=== PATIENT | female | born 1995 | race Two or more races ===

== ENCOUNTER 2017-02-02 04:23 | Inpatient (IN) | payer SELFPAY ==
[~2017-02-02] VITALS: Ht 158.1 cm; Wt 79.4 kg
[2017-02-02] MEDS ORDERED: IV RINGERS,LACTATED 1000ML 1,000 ML IV SCH (05:07)
[2017-02-02] MEDS ORDERED: FENTANYL PF 100 MCG/2 ML VIAL. IV PRN (05:15)
[2017-02-02] MEDS ORDERED: ACETAMINOPHEN 325 MG TABLET. PO PRN ×2 (05:15→15:30)
[2017-02-02] MEDS ORDERED: OXYTOCIN 30 UNIT/500 ML PREMIX 500 ML IV PRN ×2 (05:15→15:30)
[2017-02-02] MEDS ORDERED: LIDOCAINE 1% PF 30 ML VIAL. INJ PRN (05:15)
[2017-02-02] MEDS ORDERED: 0.9 % SODIUM CHLORIDE 10 ML DISP.SYRIN. IV PRN ×2 (05:15→15:30)
[2017-02-02] MEDS ORDERED: IBUPROFEN 800 MG TABLET. PO PRN (05:15)
[2017-02-02] MEDS ORDERED: TERBUTALINE 1 MG/ML VIAL. SQ PRN (05:15)
[2017-02-02] MEDS ORDERED: MAG HYDROX/ALUMINUM HYD/SIMETH 30 ML ORAL.SUSP PO PRN ×2 (05:15→15:30)
[2017-02-02] MEDS ORDERED: ONDANSETRON PF 4 MG/2 ML VIAL. IV PRN (05:15)
[2017-02-02] MEDS ORDERED: DINOPROSTONE 10 MG SUPP.VAG VG ONE (06:00)
[2017-02-02 06:19] LABS: BASO % 0 % (0-3); EOS % 1 % (0-3); HEMATOCRIT 33.7 % (36.0-47.0); HEMOGLOBIN 11.4 g/dL (12.0-15.5); LYMPH # 1.4 x10^3/uL (1.0-4.8); LYMPH % 10 % (24-48); MEAN CORPUSCULAR HEMOGLOBIN 31 pg (25-35); MEAN CORPUSCULAR HGB CONC 34 g/dL (31-37); MEAN CORPUSCULAR VOLUME 92 fL (79-100); MONO % 6 % (0-9); NEUT % 84 % (31-73); PLATELET COUNT 229 x10^3/uL (140-400); RED BLOOD COUNT 3.66 x10^6/uL (3.50-5.40); RED CELL DISTRIBUTION WIDTH 13.5 % (11.5-14.5); WHITE BLOOD COUNT 14.8 x10^3/uL (4.0-11.0)
[2017-02-02 07:52] LABS: BILIRUBIN,URINE SMALL (NEG); GLUCOSE,URINE NEGATIVE (NEG); NITRITE,URINE NEGATIVE (NEG); PH,URINE 6.5; PROTEIN,URINE NEGATIVE (NEG-TRACE)
[2017-02-02 07:55] LABS: BACTERIA,URINE MANY /HPF (0-FEW); SQUAMOUS EPITHELIAL CELL,UR MANY /LPF; WBC,URINE >40 /HPF (0-4)
[2017-02-02] MEDS ORDERED: BUTORPHANOL 2 MG VIAL. IV PRN (08:00)
[2017-02-02] MEDS ORDERED: L&D EPIDURAL CASSETTE 100 ML EP ONE (09:18)
[2017-02-02] MEDS ORDERED: ROPIVacaine 0.2% IN 0.9%NACL PF 40 MG/20 ML DISP.SYRIN. ONE (09:18)
[2017-02-02] MEDS ORDERED: EPHEDRINE PF IN SALINE 50 MG/5 ML DISP.SYRIN. IV PRN (10:00)
[2017-02-02] MEDS ORDERED: ROPIVacaine 0.2% IN 0.9%NACL PF 40 MG/20 ML DISP.SYRIN. EPI PRN (10:00)
[2017-02-02] MEDS ORDERED: NALOXONE 0.4 MG/ML VIAL. IV PRN (10:00)
[2017-02-02] MEDS ORDERED: L&D EPIDURAL CASSETTE 100 ML EP PRN (10:00)
[2017-02-02] MEDS ORDERED: OXYTOCIN in NORMAL SALINE PREMIX 30 UNIT/500 ML BAG. IV ONE (13:00)
--- NOTE | 2017-02-02 15:26 | PDOC1 ---
OB - History Hx of Present Care: Good Care Ultrasounds: Normal mid trimester US Obstetrical Complications: None Medical Complications: None Past Family/Social History * Past Medical, Surgical, Family and Obstetric Histories reviewed from chart. Rubella: Immune RPR/VDRL: Negative GBS Status: Negative HBsAG: Negative OB - Chief Complaint & HPI Date of Admission: Date of Admission: Feb 02, 2017 at 04:23 Chief Complaint/History : 1 Para: 0 EGA: 40 Reason for admission: induction of labor Indication for induction: post dates Admission Nurse Assessment Rev: Yes Problems: OB - Admission Exam Physical Exam Vitals: VS - Last 72 Hours, by Label Date Time Temp Pulse Resp B/P Pulse Ox O2 Delivery O2 Flow Rate FiO2 02/02/17 07:59 20 HEENT: Normal Heart: Regular Rate Lungs: Clear Abdomen: Gravid, Non tender, Soft Extremities: Edema Reflexes: Normal Cervical Dilatation: 1cm Effacement: 50% Station: -3 Membranes: Intact Heart Rate: Normal Accelerations: Accelerations Present Decelerations: No decelerations Contractions on Admission: >10 Minutes Apart Intensity: Mild Text A: 40 wks IUP IOL post dates P: Admit for labor induction with cervidil. HUGH EWING Jr, MD Feb 02, 2017 15:25
--- NOTE | 2017-02-02 15:27 | PDOC ---
VAGINAL DELIVERY DATE DATE: 02/02/17 TIME: 15:26 : 1 Para: 1 EGA: 40 VAGINAL DELIVERY: VTX VACCUM ASSISTED: No PLACENTA: Spontaneous 8/9 SEX: Female WEIGHT Weight [3325 gm ] Nuchal Cord: No Amniotic Fluid: Clear PAIN: Epidural EPISIOTOMY: No EXTENSION: Yes (2nd degree midline laceration) REPAIRED WITH 2-0 vicryl EBL 300 ml COMPLICATIONS none CONDITION pt. stable Signs of Intrauterine Infectio: None Shoulder Dystocia: No Problems: HUGH EWING Jr, MD Feb 02, 2017 15:27
[2017-02-02] MEDS ORDERED: SIMETHICONE 80 MG TAB.CHEW PO PRN (15:30)
[2017-02-02] MEDS ORDERED: MAGNESIUM HYDROXIDE 2,400 MG/30 ML ORAL.SUSP. PO PRN (15:30)
[2017-02-02] MEDS ORDERED: PHENYLEPH/MINERAL OIL/PETROLAT RECTAL OINTMENT 28GM TUBE. RC PRN (15:30)
[2017-02-02] MEDS ORDERED: HYDROCORTISONE 1% TOPICAL OINTMENT 30GM TUBE. TP PRN (15:30)
[2017-02-02] MEDS ORDERED: BENZOCAINE 20% TOPICAL AEROSOL SPRAY 57GM CAN. TP PRN (15:30)
[2017-02-02] MEDS ORDERED: MMR per PROTOCOL. MC PRN (15:30)
[2017-02-02] MEDS ORDERED: ZOLPIDEM 5 MG TABLET. PO PRN (15:30)
[2017-02-02] MEDS ORDERED: DIPHENHYDRAMINE HCL 25 MG CAPSULE PO PRN (15:30)
[2017-02-02] MEDS: IV RINGERS,LACTATED 1000ML 1,000 ML IV SCH ×2 (17:12→17:46)
[2017-02-02 20:30] VITALS: BP 107/52
[2017-02-02] MEDS: OXYCODONE/APAP 5/325 TABLET. PO PRN (20:30)
[2017-02-02] MEDS ORDERED: PNV1TABL25 PO (21:44)
[2017-02-02 22:00] VITALS: BP 94/45
[2017-02-03 00:50] VITALS: BP 97/53
[2017-02-03] MEDS: IV RINGERS,LACTATED 1000ML 1,000 ML IV SCH (01:46)
[2017-02-03 04:45] VITALS: BP 108/49
[2017-02-03] MEDS: IBUPROFEN 800 MG TABLET. PO PRN ×2 (05:17→17:40)
[2017-02-03 06:11] LABS: BASO % 0 % (0-3); EOS % 0 % (0-3); HEMATOCRIT 28.6 % (36.0-47.0); HEMOGLOBIN 9.7 g/dL (12.0-15.5); LYMPH % 17 % (24-48); MEAN CORPUSCULAR HEMOGLOBIN 31 pg (25-35); MEAN CORPUSCULAR HGB CONC 34 g/dL (31-37); MEAN CORPUSCULAR VOLUME 93 fL (79-100); MONO % 7 % (0-9); NEUT % 75 % (31-73); PLATELET COUNT 176 x10^3/uL (140-400); RED BLOOD COUNT 3.09 x10^6/uL (3.50-5.40); RED CELL DISTRIBUTION WIDTH 13.6 % (11.5-14.5)
[2017-02-03] MEDS: DOCUSATE SODIUM 100 MG CAPSULE PO PRN (07:44)
[2017-02-03] MEDS: FERROUS SULFATE 325 MG TABLET PO SCH ×2 (07:44→17:38)
[2017-02-03] MEDS: OXYCODONE/APAP 5/325 TABLET. PO PRN ×3 (07:44→20:21)
[2017-02-03 10:30] VITALS: BP 111/58
--- NOTE | 2017-02-03 11:48 | PDOC ---
OB Progress Note Date of Service 02/03/17 Time of Evaluation 1145 Notes Pt. feeling well. Pain controlled. Lochia minimal. Breast feeding. Lab Laboratory Tests Test 02/02/17 05:30 02/02/17 07:00 02/03/17 05:55 White Blood Count 14.8x10^3/uL (4.0-11.0) 12.0x10^3/uL (4.0-11.0) Red Blood Count 3.66x10^6/uL (3.50-5.40) 3.09x10^6/uL (3.50-5.40) Hemoglobin 11.4g/dL (12.0-15.5) 9.7g/dL (12.0-15.5) Hematocrit 33.7% (36.0-47.0) 28.6% (36.0-47.0) Mean Corpuscular Volume 92fL (79-100) 93fL (79-100) Mean Corpuscular Hemoglobin 31pg (25-35) 31pg (25-35) Mean Corpuscular Hemoglobin Concent 34g/dL (31-37) 34g/dL (31-37) Red Cell Distribution Width 13.5% (11.5-14.5) 13.6% (11.5-14.5) Platelet Count 229x10^3/uL (140-400) 176x10^3/uL (140-400) Neutrophils (%) (Auto) 84% (31-73) 75% (31-73) Lymphocytes (%) (Auto) 10% (24-48) 17% (24-48) Monocytes (%) (Auto) 6% (0-9) 7% (0-9) Eosinophils (%) (Auto) 1% (0-3) 0% (0-3) Basophils (%) (Auto) 0% (0-3) 0% (0-3) Neutrophils # (Auto) 12.4x10^3uL (1.8-7.7) 9.0x10^3uL (1.8-7.7) Lymphocytes # (Auto) 1.4x10^3/uL (1.0-4.8) 2.0x10^3/uL (1.0-4.8) Monocytes # (Auto) 0.9x10^3/uL (0.0-1.1) 0.9x10^3/uL (0.0-1.1) Eosinophils # (Auto) 0.1x10^3/uL (0.0-0.7) 0.0x10^3/uL (0.0-0.7) Basophils # (Auto) 0.0x10^3/uL (0.0-0.2) 0.0x10^3/uL (0.0-0.2) Urine Collection Type Unknown Urine Color Yellow Urine Clarity Clear Urine pH 6.5 Urine Specific [place] 1.025 Urine Protein Negativemg/dL (NEG-TRACE) Urine Glucose (UA) Negativemg/dL (NEG) Urine Ketones (Stick) 15mg/dL (NEG) Urine Blood Negative (NEG) Urine Nitrite Negative (NEG) Urine Bilirubin Small (NEG) Urine Urobilinogen Dipstick 1.0mg/dL (0.2 mg/dL) Urine Leukocyte Esterase Moderate (NEG) Urine RBC 1-2/HPF (0-2) Urine WBC >40/HPF (0-4) Urine Squamous Epithelial Cells Many/LPF Urine Bacteria Many/HPF (0-FEW) Urine Mucus Marked/LPF Laboratory Tests Test 02/03/17 05:55 White Blood Count 12.0x10^3/uL (4.0-11.0) Red Blood Count 3.09x10^6/uL (3.50-5.40) Hemoglobin 9.7g/dL (12.0-15.5) Hematocrit 28.6% (36.0-47.0) Mean Corpuscular Volume 93fL (79-100) Mean Corpuscular Hemoglobin 31pg (25-35) Mean Corpuscular Hemoglobin Concent 34g/dL (31-37) Red Cell Distribution Width 13.6% (11.5-14.5) Platelet Count 176x10^3/uL (140-400) Neutrophils (%) (Auto) 75% (31-73) Lymphocytes (%) (Auto) 17% (24-48) Monocytes (%) (Auto) 7% (0-9) Eosinophils (%) (Auto) 0% (0-3) Basophils (%) (Auto) 0% (0-3) Neutrophils # (Auto) 9.0x10^3uL (1.8-7.7) Lymphocytes # (Auto) 2.0x10^3/uL (1.0-4.8) Monocytes # (Auto) 0.9x10^3/uL (0.0-1.1) Eosinophils # (Auto) 0.0x10^3/uL (0.0-0.7) Basophils # (Auto) 0.0x10^3/uL (0.0-0.2) Medications Current Medications Sodium Chloride 3 ml 3 ml QSHIFT PRN IV AFTER MEDS AND BLOOD DRAWS; Start at 05:15; Stop 02/02/17 at 21:54; Status DC Lactated Ringer's (Iv Lactated Ringers) 1,000 ml @ 125 mls/hr Q8H IV Last administered on 02/02/17 07:58; Start 02/02/17 at 05:07; Stop 02/02/17 at 15:34; Status DC Fentanyl Citrate (Fentanyl 2ml Vial) 100 mcg PRN Q10MIN PRN IV Labor pain; Start 02/02/17 at 05:15; Stop 02/02/17 at 21:54; Status DC Acetaminophen (Tylenol) 650 mg PRN Q6HRS PRN PO MILD PAIN / TEMP; Start at 05:15; Status Cancel Ondansetron HCl (Zofran) 4 mg PRN Q4HRS PRN IV NAUSEA/VOMITING Last administered on 02/02/17 07:59; Start 02/02/17 at 05:15 Al Hydrox/Mg Hydrox/Simethicone (Mylanta Plus Xs) 30 ml PRN Q4HRS PRN PO HEARTBURN / GAS; Start 02/02/17 at 05:15; Status Cancel Terbutaline Sulfate (Brethine) 0.25 mg 1X PRN PRN SQ SEE COMMENTS; Start at 05:15; Stop 02/02/17 at 21:54; Status DC Lidocaine HCl 30 ml 30 ml 1X PRN PRN INJ SEE COMMENTS; Start 02/02/17 at 05:15; Stop 02/02/17 at 21:54; Status DC Oxytocin/Sodium Chloride (Oxytocin Premix Infusion) 500 ml @ 0 mls/hr CONT PRN PRN IV Post delivery bleeding; Start 02/02/17 at 05:15; Stop 02/02/17 at 21:54; Status DC Ibuprofen (Motrin) 800 mg PRN Q6HRS PRN PO MODERATE PAIN Last administered on 18:36; Start 02/02/17 at 05:15; Stop 02/02/17 at 21:54; Status DC Dinoprostone (Cervidil) 10 mg 1X ONCE VG Last administered on 02/02/17 06:00; Start 02/02/17 at 06:00; Stop 02/02/17 at 21:54; Status DC Butorphanol Tartrate 2 mg 2 mg PRN Q4HRS PRN IV PAIN Last administered on 07:59; Start 02/02/17 at 08:00; Stop 02/02/17 at 21:54; Status DC Ropivacaine/ Fentanyl/NS (Rnvniive-Zbwox-LI 3 Mcg-0.1%) 100 ml @ As Directed STK-MED ONCE EP ; Start 02/02/17 at 09:18; Stop 02/02/17 at 21:54; Status DC Ropivacaine 40 mg 40 mg STK-MED ONCE .ROUTE ; Start 02/02/17 at 09:18; Stop at 21:54; Status DC Ropivacaine/ Fentanyl/NS 100 ml @ 14 mls/hr CONT PRN EP PAIN Last administered on 02/02/17 17:14; Start 02/02/17 at 10:00; Stop 02/02/17 at 21:54; Status DC Lactated Ringer's (Iv Lactated Ringers) 1,000 ml @ 125 mls/hr Q8H IV Last administered on 02/02/17 17:12; Start 02/02/17 at 09:46 Ephedrine Sulfate 10 mg PRN Q2MIN PRN IV IF SBP<90; Start 02/02/17 at 10:00; Stop 02/02/17 at 21:54; Status DC Naloxone HCl (Narcan) 0.04 mg PRN Q1MIN PRN IV SEE COMMENTS; Start 02/02/17 at 10:00; Stop 02/02/17 at 21:54; Status DC Ropivacaine 40 mg PRN 1X PRN EPI SEE COMMENTS Last administered on 02/02/17 17: 15; Start 02/02/17 at 10:00; Stop 02/02/17 at 21:54; Status DC Sodium Chloride 10 ml 10 ml QSHIFT PRN IV AFTER MEDS AND BLOOD DRAWS; Start 02/02/17 at 15:30 Oxytocin/Sodium Chloride (Oxytocin Premix Infusion) 500 ml @ 62.5 mls/hr CONT PRN IV SEE I/O RECORD; Start 02/02/17 at 15:30; Stop 02/02/17 at 23:29; Status DC Acetaminophen (Tylenol) 650 mg PRN Q6HRS PRN PO MILD PAIN / TEMP; Start at 15:30 Ibuprofen (Motrin) 800 mg PRN Q8HRS PRN PO INFLAMMATION/PAIN PREVENTION Last administered on 02/03/17 05:17; Start 02/02/17 at 15:30 Docusate Sodium (Colace) 100 mg PRN BID PRN PO CONSTIPATION Last administered on 02/03/17 07:44; Start 02/02/17 at 15:30 Magnesium Hydroxide (Milk Of Magnesia) 2,400 mg PRN DAILY PRN PO CONSTIPATION; Start 02/02/17 at 15:30 Al Hydrox/Mg Hydrox/Simethicone (Mylanta Plus Xs) 30 ml PRN Q4HRS PRN PO HEARTBURN / GAS; Start 02/02/17 at 15:30 Simethicone (Gas-X) 80 mg PRN AFTMEALHC PRN PO GAS / BLOATING Last administered on 02/03/17 07:46; Start 02/02/17 at 15:30 Diphenhydramine HCl (Benadryl) 25 mg PRN Q6HRS PRN PO ITCHING; Start 02/02/17 at 15:30 Benzocaine (Americaine) 1 spray PRN QID PRN TP TOPICAL PAIN Last administered on 02/02/17 18:36; Start 02/02/17 at 15:30 Phenyleph/Shark Oil/Min Oil/Petrol (Preparation H) 1 cabrera PRN QID PRN RC RECTAL PAIN; Start 02/02/17 at 15:30 Hydrocortisone (Cortaid) 1 cabrera PRN QID PRN TP PERINEAL PAIN; Start 02/02/17 at 15:30 Ferrous Sulfate (Feosol) 325 mg BIDWMEALS PO Last administered on 02/03/17 07: 44; Start 02/03/17 at 08:00 Zolpidem Tartrate (Ambien) 5 mg PRN QHS PRN PO INSOMNIA, MAY REPEAT X1; Start 02/02/17 at 15:30 Info (Do NOT chart on this placeholder) 1 ea 1X PRN PRN MC SEE COMMENTS; Start 02/02/17 at 15:30; Stop 02/02/17 at 21:54; Status DC Info (Do NOT chart on this placeholder) 1 ea 1X PRN PRN MC SEE COMMENTS; Start 02/02/17 at 15:30; Stop 02/02/17 at 21:54; Status DC Oxycodone/ Acetaminophen (Percocet 5/325) 2 tab PRN Q4HRS PRN PO MODERATE PAIN , SEVERE PAIN Last administered on 02/03/17 07:44; Start 02/02/17 at 15:30 Active Scripts Active Reported Tablet (Pnv Cmb#95/Ferrous Fumarate/Fa) 1 Each Tablet 1 Each PO DAILY Exam Abd: soft, non tender, fundus firm Assessment PPD#1 s/p Plan of Care: Continue current Tx, Mgmt HUGH EWING Jr, MD Feb 03, 2017 11:48
[2017-02-03 17:40] VITALS: BP 94/50
[2017-02-03 20:20] VITALS: BP 98/60
[2017-02-04] MEDS: OXYCODONE/APAP 5/325 TABLET. PO PRN ×2 (02:12→08:21)
[2017-02-04] MEDS: IBUPROFEN 800 MG TABLET. PO PRN (02:12)
[2017-02-04 05:30] VITALS: BP 100/52
--- NOTE | 2017-02-04 07:31 | PDOC ---
OB Progress Note Date of Service 02/04/17 Time of Evaluation 0730 Notes Pt. feeling well. No complaints. Lab Laboratory Tests Test 02/03/17 05:55 White Blood Count 12.0x10^3/uL (4.0-11.0) Red Blood Count 3.09x10^6/uL (3.50-5.40) Hemoglobin 9.7g/dL (12.0-15.5) Hematocrit 28.6% (36.0-47.0) Mean Corpuscular Volume 93fL (79-100) Mean Corpuscular Hemoglobin 31pg (25-35) Mean Corpuscular Hemoglobin Concent 34g/dL (31-37) Red Cell Distribution Width 13.6% (11.5-14.5) Platelet Count 176x10^3/uL (140-400) Neutrophils (%) (Auto) 75% (31-73) Lymphocytes (%) (Auto) 17% (24-48) Monocytes (%) (Auto) 7% (0-9) Eosinophils (%) (Auto) 0% (0-3) Basophils (%) (Auto) 0% (0-3) Neutrophils # (Auto) 9.0x10^3uL (1.8-7.7) Lymphocytes # (Auto) 2.0x10^3/uL (1.0-4.8) Monocytes # (Auto) 0.9x10^3/uL (0.0-1.1) Eosinophils # (Auto) 0.0x10^3/uL (0.0-0.7) Basophils # (Auto) 0.0x10^3/uL (0.0-0.2) Medications Current Medications Sodium Chloride 3 ml 3 ml QSHIFT PRN IV AFTER MEDS AND BLOOD DRAWS; Start at 05:15; Stop 02/02/17 at 21:54; Status DC Lactated Ringer's (Iv Lactated Ringers) 1,000 ml @ 125 mls/hr Q8H IV Last administered on 02/02/17t 07:58; Start 02/02/17 at 05:07; Stop 02/02/17 at 15:34; Status DC Fentanyl Citrate (Fentanyl 2ml Vial) 100 mcg PRN Q10MIN PRN IV Labor pain; Start 02/02/17 at 05:15; Stop 02/02/17 at 21:54; Status DC Acetaminophen (Tylenol) 650 mg PRN Q6HRS PRN PO MILD PAIN / TEMP; Start at 05:15; Status Cancel Ondansetron HCl (Zofran) 4 mg PRN Q4HRS PRN IV NAUSEA/VOMITING Last administered on 02/02/17 07:59; Start 02/02/17 at 05:15 Al Hydrox/Mg Hydrox/Simethicone (Mylanta Plus Xs) 30 ml PRN Q4HRS PRN PO HEARTBURN / GAS; Start 02/02/17 at 05:15; Status Cancel Terbutaline Sulfate (Brethine) 0.25 mg 1X PRN PRN SQ SEE COMMENTS; Start at 05:15; Stop 02/02/17 at 21:54; Status DC Lidocaine HCl 30 ml 30 ml 1X PRN PRN INJ SEE COMMENTS; Start 02/02/17 at 05:15; Stop 02/02/17 at 21:54; Status DC Oxytocin/Sodium Chloride (Oxytocin Premix Infusion) 500 ml @ 0 mls/hr CONT PRN PRN IV Post delivery bleeding; Start 02/02/17 at 05:15; Stop 02/02/17 at 21:54; Status DC Ibuprofen (Motrin) 800 mg PRN Q6HRS PRN PO MODERATE PAIN Last administered on 18:36; Start 02/02/17 at 05:15; Stop 02/02/17 at 21:54; Status DC Dinoprostone (Cervidil) 10 mg 1X ONCE VG Last administered on 02/02/17 06:00; Start 02/02/17 at 06:00; Stop 02/02/17 at 21:54; Status DC Butorphanol Tartrate 2 mg 2 mg PRN Q4HRS PRN IV PAIN Last administered on 07:59; Start 02/02/17 at 08:00; Stop 02/02/17 at 21:54; Status DC Ropivacaine/ Fentanyl/NS ([id number]-Jkdjo-VS 3 Mcg-0.1%) 100 ml @ As Directed STK-MED ONCE EP ; Start 02/02/17 at 09:18; Stop 02/02/17 at 21:54; Status DC Ropivacaine 40 mg 40 mg STK-MED ONCE .ROUTE ; Start 02/02/17 at 09:18; Stop at 21:54; Status DC Ropivacaine/ Fentanyl/NS 100 ml @ 14 mls/hr CONT PRN EP PAIN Last administered on 02/02/17 17:14; Start 02/02/17 at 10:00; Stop 02/02/17 at 21:54; Status DC Lactated Ringer's (Iv Lactated Ringers) 1,000 ml @ 125 mls/hr Q8H IV Last administered on 02/02/17 17:12; Start 02/02/17 at 09:46; Stop 02/03/17 at 20:33; Status DC Ephedrine Sulfate 10 mg PRN Q2MIN PRN IV IF SBP<90; Start 02/02/17 at 10:00; Stop 02/02/17 at 21:54; Status DC Naloxone HCl (Narcan) 0.04 mg PRN Q1MIN PRN IV SEE COMMENTS; Start 02/02/17 at 10:00; Stop 02/02/17 at 21:54; Status DC Ropivacaine 40 mg PRN 1X PRN EPI SEE COMMENTS Last administered on 02/02/17 17: 15; Start 02/02/17 at 10:00; Stop 02/02/17 at 21:54; Status DC Sodium Chloride 10 ml 10 ml QSHIFT PRN IV AFTER MEDS AND BLOOD DRAWS; Start 02/02/17 at 15:30 Oxytocin/Sodium Chloride (Oxytocin Premix Infusion) 500 ml @ 62.5 mls/hr CONT PRN IV SEE I/O RECORD; Start 02/02/17 at 15:30; Stop 02/02/17 at 23:29; Status DC Acetaminophen (Tylenol) 650 mg PRN Q6HRS PRN PO MILD PAIN / TEMP; Start at 15:30 Ibuprofen (Motrin) 800 mg PRN Q8HRS PRN PO INFLAMMATION/PAIN PREVENTION Last administered on 02/04/17 02:12; Start 02/02/17 at 15:30 Docusate Sodium (Colace) 100 mg PRN BID PRN PO CONSTIPATION Last administered on 02/03/17 07:44; Start 02/02/17 at 15:30 Magnesium Hydroxide (Milk Of Magnesia) 2,400 mg PRN DAILY PRN PO CONSTIPATION; Start 02/02/17 at 15:30 Al Hydrox/Mg Hydrox/Simethicone (Mylanta Plus Xs) 30 ml PRN Q4HRS PRN PO HEARTBURN / GAS; Start 02/02/17 at 15:30 Simethicone (Gas-X) 80 mg PRN AFTMEALHC PRN PO GAS / BLOATING Last administered on 02/03/17 07:46; Start 02/02/17 at 15:30 Diphenhydramine HCl (Benadryl) 25 mg PRN Q6HRS PRN PO ITCHING; Start 02/02/17 at 15:30 Benzocaine (Americaine) 1 spray PRN QID PRN TP TOPICAL PAIN Last administered on 02/02/17 18:36; Start 02/02/17 at 15:30 Phenyleph/Shark Oil/Min Oil/Petrol (Preparation H) 1 [place]rera PRN QID PRN RC RECTAL PAIN; Start 02/02/17 at 15:30 Hydrocortisone (Cortaid) 1 [place] PRN QID PRN TP PERINEAL PAIN; Start 02/02/17 at 15:30 Ferrous Sulfate (Feosol) 325 mg BIDWMEALS PO Last administered on 02/03/17 17: 38; Start 02/03/17 at 08:00 Zolpidem Tartrate (Ambien) 5 mg PRN QHS PRN PO INSOMNIA, MAY REPEAT X1; Start 02/02/17 at 15:30 Info (Do NOT chart on this placeholder) 1 ea 1X PRN PRN MC SEE COMMENTS; Start 02/02/17 at 15:30; Stop 02/02/17 at 21:54; Status DC Info (Do NOT chart on this placeholder) 1 ea 1X PRN PRN MC SEE COMMENTS; Start 02/02/17 at 15:30; Stop 02/02/17 at 21:54; Status DC Oxycodone/ Acetaminophen (Percocet 5/325) 2 tab PRN Q4HRS PRN PO MODERATE PAIN , SEVERE PAIN Last administered on 02/04/17 02:12; Start 02/02/17 at 15:30 Active Scripts Active Reported Tablet (Pnv Cmb#95/Ferrous Fumarate/Fa) 1 Each Tablet 1 Each PO DAILY Exam Abd: soft, non tender, fundus firm Assessment PPD#2 s/p Plan of Care: See new orders (D/c home) HUGH EWING Jr, MD Feb 04, 2017 07:31
[2017-02-04] MEDS ORDERED: DOCU-27 PO (07:32)
[2017-02-04] MEDS ORDERED: OXYC-323 PO (07:32)
--- NOTE | 2017-02-04 07:32 | DISCH ---
DISCHARGE INSTRUCTIONS Condition on Discharge Condition on Discharge: Stable Activity After Discharge Activity Instructions for Disc: Activity as tolerated Lifting Instructions after Dis: No heavy lifting Driving Instructions after Dis: Do not drive today Diet after Discharge Diet after Discharge: Regular Contacting the DRTammy after DC Call your doctor for: Concerns you may have Follow-Up Follow up with: [facility] in 6 wks. HUGH EWING Jr, MD Feb 04, 2017 07:32
[2017-02-04] MEDS: FERROUS SULFATE 325 MG TABLET PO SCH (08:20)
[2017-02-04] MEDS: DOCUSATE SODIUM 100 MG CAPSULE PO PRN (08:20)
[2017-02-04 12:05] VITALS: BP 107/48
== END 2017-02-04 13:05 | disposition home or self-care (01) | DRG 775 ==
LOC: 3 SO LND 04:23 → EDBD 04:23 → 3 NORTH 21:25 → OBSVTOIN 21:29
PROVIDERS: ADMIT Obstetrics & Gynecology; ATTEND Obstetrics & Gynecology
PROC: 0KQM0ZZ Repair Perineum Muscle, Open Approach (ICD-10-PCS; principal; 2017-02-02)
PROC: 10E0XZZ Delivery of Products of Conception, External Approach (ICD-10-PCS; 2017-02-02)
PROC: 3E0S3CZ (ICD-10-PCS; 2017-02-02)
PROC: 00HU33Z Insertion of Infusion Device into Spinal Canal, Percutaneous Approach (ICD-10-PCS; 2017-02-02)
DX: O48.0 Post-term pregnancy (principal); O70.1 Second degree perineal laceration during delivery; Z3A.40 40 weeks gestation of pregnancy; Z37.0 Single live birth
CPT/HCPCS: 36415; 81001; 85027; 86593; 86850; 86900; 86901; 87086; 87491; 87591; 92585; G0378; G0379; J2405; J2590; J2795; J7120